=== PATIENT | female | born 1955 | race Native Hawaiian/Other Pacific Islander ===

== ENCOUNTER 2022-02-12 12:07 | Observation (INO) | payer OTHER ==
[~2022-02-12] VITALS: Ht 152.4 cm; Wt 69.4 kg
[2022-02-12 12:22] VITALS: BP 198/108; TEMP 97
[2022-02-12 12:30] VITALS: BP 169/90
[2022-02-12 12:37] LABS: PLATELET COUNT 188 K/uL (152-353)
[2022-02-12 12:39] LABS: POTASSIUM 3.9 mmol/L (3.6-5.2)
[2022-02-12 12:40] VITALS: BP 179/92
[2022-02-12 12:48] LABS: PARTIAL THROMBOPLASTIN TIME 25.6 SECONDS (24.5-33.6)
[2022-02-12 14:40] VITALS: BP 145/83
== END 2022-02-12 15:20 | disposition left against medical advice (07) ==
LOC: EDBD 12:07 → ED 12:07 → MED/SURG 14:20
PROVIDERS: Family Medicine; ADMIT Internal Medicine; ATTEND Internal Medicine
DX: I20.0 Unstable angina (principal); I10 Essential (primary) hypertension; R06.02 Shortness of breath; K21.9 Gastro-esophageal reflux disease without esophagitis; J44.9 Chronic obstructive pulmonary disease, unspecified; E78.00 Pure hypercholesterolemia, unspecified
CPT/HCPCS: 80053; 82550; 84484; 85027; 85610; 85730; 87635; 93005; 99220; 99284; G0378; U0003